=== PATIENT | female | born 1965 | race Caucasian/White ===

== ENCOUNTER 2020-01-25 14:48 | Outpatient (CLI) | payer BC, SELFPAY | END 2020-01-25 14:49 | disposition home or self-care (01) | LOC: CHSLAB 14:52 | PROVIDERS: Visit Provider Specialist | DX: D22.71 Melanocytic nevi of right lower limb, including hip (principal) | CPT/HCPCS: 88305; 88342 ==

== ENCOUNTER 2021-12-21 15:12 | Emergency (ER) | payer BC, SELFPAY ==
[2021-12-21 15:23] VITALS: BP 108/53; PULSE 72; RESP 16; TEMP 36.5; O2SAT 100
--- NOTE | 2021-12-21 15:34 | ED.SKABFB ---
HPI - Skin/Abscess/Foreign Bdy General Chief complaint: Skin/Abscess/Foreign Body Stated complaint: Burn Lt Wrist Time Seen by Provider: 12/21/21 15:25 History of Present Illness HPI narrative: Renay Torres is a 56 yo female with no PMH who comes to express care for 2x2 5 day old burn on L medial risk. She burned her wrist last Friday pulling a pie out of oven. Related Data Home Medications Medication Instructions Recorded Confirmed alendronate 70 mg tablet 70 mg PO DAILY 12/21/21 12/21/21 alprazolam 0.25 mg tablet 0.25 mg PO PRN PRN Anxiety 12/21/21 12/21/21 carvedilol 3.125 mg tablet 3.125 mg PO DAILY 12/21/21 12/21/21 escitalopram oxalate 20 mg tablet 20 mg PO DAILY 12/21/21 12/21/21 levothyroxine 75 mcg tablet 75 mcg PO DAILY 12/21/21 12/21/21 (Synthroid) lisinopril 5 mg tablet 5 mg PO DAILY 12/21/21 12/21/21 naproxen 500 mg tablet 500 mg PO DAILY 12/21/21 12/21/21 simvastatin 40 mg tablet 40 mg PO DAILY 12/21/21 12/21/21 Allergies Allergy/AdvReac Type Severity Reaction Status Date / Time Penicillins Allergy Severe Hives / Verified 12/21/21 15:15 Red Face atropine AdvReac Intermediate UNSURE Verified 12/21/21 15:15 Review of Systems Review of Systems: CONSTITUTIONAL: Denies fever, chills, sweats. EYES: Denies visual changes, redness, discharge. ENT: Denies rhinorrhea, congestion, sore throat, otalgia. CARDIOVASCULAR: Denies chest pain, palpitations, edema. RESPIRATORY: Denies dyspnea, wheezing, cough GASTROINTESTINAL: Denies abdominal pain, nausea, vomiting, diarrhea. GENITOURINARY: Denies dysuria, hematuria, abnormal discharge SKIN: Burn to left wrist that is well on way to healing, 2 x 2 second-degree burn from oven NEUROLOGIC: Denies numbness, or focal weakness. PSYCHIATRIC: Denies anxiety or depression. [facility] Social History Social History (Updated 12/21/21 @ 16:07 by Dee Dee Bgigs CNP) Smoking status: Never smoker Alcohol intake: current Comments At time of signature, I agree with nursing past medical, surgical, social and family history. There is no relevant family history pertinent to the presenting complaint. Exam Narrative: GENERAL: This is a well-nourished, well-developed patient, in mild distress. HEAD: normocephalic, atraumatic. EYES: P. Sclera clear/white. Vision is grossly intact. EARS: External ears normal, . Hearing grossly intact. NOSE: External nose normal without nasal discharge, nares without redness, no rhinorrhea. THROAT: Mucous membranes moist, NECK: Neck supple, CARDIOVASCULAR: Regular rate and rhythm without murmurs, gallops, or rubs. RESPIRATORY: Clear to auscultation. Breath sounds equal bilaterally. No wheezes, rales, or rhonchi. GASTROINTESTINAL:not done SKIN: warm, intact with 2x2 , granulating burn to L wrist, no draining, no discharge, no induration. NEURO: awake, alert, and oriented to person, place and time. There were no obvious focal neurologic abnormalities. Steady gait EXTREMITIES: Normal range of motion. BACK: Nontender without deformity Course Course Emergency Course: Patient is here for second-degree burn of her left wrist; it occurred last Friday and is here for Silvadene cream. She states because burn is seeping fluid Discussed pros and cons of Silvadene and keeping burn covered it is granulating well currently but will still take a while to heal Patient is going to use Silvadene twice a day and recommended keeping burn covered until healed Level of Care: Express Care Visit Vital Signs Vital signs: Vital Signs Temperature 97.7 F 12/21/21 15:23 Pulse Rate 72 12/21/21 15:23 Respiratory Rate 16 12/21/21 15:23 Blood Pressure 108/53 L 12/21/21 15:23 Pulse Oximetry 100 12/21/21 15:23 Oxygen Delivery Room Air 12/21/21 15:23 Temperature 97.7 F 12/21/21 15:23 Pulse Rate 72 12/21/21 15:23 Respiratory Rate 16 12/21/21 15:23 Blood Pressure 108/53 L 12/21/21 15:23 Pulse Oximetry 100 12/21/21 15:23 Oxygen De
[2021-12-21] MEDS: SILVER SULFADIAZINE 1% CR 50 GM JAR (*BKC) 1 APPLIC TOPICAL (15:41)
== END 2021-12-21 15:44 | disposition home or self-care (01) ==
PROVIDERS: Emergency Provider Nurse Practitioner; PCP Internal Medicine
DX: T23.272A Burn of second degree of left wrist, initial encounter (principal); E78.00 Pure hypercholesterolemia, unspecified; I10 Essential (primary) hypertension; M19.90 Unspecified osteoarthritis, unspecified site; E03.9 Hypothyroidism, unspecified; Z95.5 Presence of coronary angioplasty implant and graft; F41.9 Anxiety disorder, unspecified; F32.A Depression, unspecified
CPT/HCPCS: 99213; A9270; G0463

== ENCOUNTER 2022-03-22 11:53 | Emergency (ER) | payer BC, SELFPAY ==
--- NOTE | 2022-03-22 11:58 | ED.EYEPROB ---
HPI - Eye Problem General Chief complaint: Eye Problems Stated complaint: EYE REDNESS Time Seen by Provider: 03/22/22 12:20 Source: patient and RN notes reviewed Mode of arrival: ambulatory Limitations: no limitations History of Present Illness HPI Narrative: 56-year-old female presents concern for right eye redness, irritation, discharge that started last night. Reports it was matted shut this morning. She denies any upper respiratory symptoms. Reports she is babysitting her grandson this weekend and wants to make sure she is not contagious. chief complaint: eye redness Related Data Home Medications Medication Instructions Recorded Confirmed alendronate 70 mg tablet 70 mg PO DAILY 12/21/21 03/22/22 alprazolam 0.25 mg tablet 0.25 mg PO PRN PRN Anxiety 12/21/21 03/22/22 carvedilol 3.125 mg tablet 3.125 mg PO DAILY 12/21/21 03/22/22 escitalopram oxalate 20 mg tablet 20 mg PO DAILY 12/21/21 03/22/22 levothyroxine 75 mcg tablet 75 mcg PO DAILY 12/21/21 03/22/22 (Synthroid) lisinopril 5 mg tablet 5 mg PO DAILY 12/21/21 03/22/22 naproxen 500 mg tablet 500 mg PO DAILY 12/21/21 03/22/22 simvastatin 40 mg tablet 40 mg PO DAILY 12/21/21 03/22/22 Allergies Allergy/AdvReac Type Severity Reaction Status Date / Time atropine AdvReac Intermediate UNSURE Verified 03/22/22 12:12 Penicillins AdvReac Intermediate Hives / Verified 03/22/22 12:19 Red Face Review of Systems Review of Systems: CONSTITUTIONAL: Denies malaise, chills, sweats, or fever. EYES: Denies visual changes. Reports right redness, irritation, discharge. ENT: Denies rhinorrhea, congestion, sinus pain, otalgia or sore throat. SKIN: Denies rash or itching. NEUROLOGIC: Denies numbness, weakness, or headache. PSYCHIATRIC: Denies anxiety or depression. All systems reviewed & are unremarkable except as noted in HPI and below PMFSH Social History Social History (Updated 12/21/21 @ 16:07 by Dee Dee Biggs, [employer]) Smoking status: Never smoker Alcohol intake: current Comments At time of signature, agree with nursing past medical, surgical, social and family history. There is no relevant family history pertinent to the presenting complaint Exam Narrative: GENERAL: Well-appearing, well-nourished, and in no acute distress. HEAD: Normocephalic, atraumatic. EYES: PERRLA, left conjunctivae and sclera clear, and EOMI. No nystagmus. Right eye sclera and conjunctivae injected with drainage noted. Upper and lower eyelid unremarkable, no periorbital edema noted ENT: Nares clear, turbinates pink, no rhinorrhea or epistaxis. Mucous membranes moist. TM pearly nunez with sharp light reflex bilaterally; no tragal tenderness. NECK: Supple. CHEST: No respiratory distress. Speaks in full sentences. HEART: Regular rate and rhythm. SKIN: Warm, dry, no visible rash. NEURO: Alert and oriented x3. PSYCH: Normal mood and affect Course Course Emergency Course: Patient is aware of diagnosis, understands and agrees to treatment plan. Anticipatory guidance given. Patient agrees to follow-up as directed and is aware of reasons to seek care at the emergency department. Portions of this record may have been created with voice recognition software Level of Care: Express Care Visit Vital Signs Vital signs: Vital Signs Temperature 97.8 F 03/22/22 12:03 Pulse Rate 69 03/22/22 12:03 Respiratory Rate 16 03/22/22 12:03 Blood Pressure 104/57 L 03/22/22 12:03 Pulse Oximetry 100 03/22/22 12:03 Temperature 97.8 F 03/22/22 12:03 Pulse Rate 69 03/22/22 12:03 Respiratory Rate 16 03/22/22 12:03 Blood Pressure 104/57 L 03/22/22 12:03 Pulse Oximetry 100 03/22/22 12:03 Reviewed. MDM - Eye Problem MDM Narrative Medical decision making narrative: Consideration of the following conditions may be warranted for the presenting problem, they are not final diagnoses: Bacterial conjunctivitis, allergic conjunctivitis, viral conjunctivitis, foreign body, ble
[2022-03-22 12:03] VITALS: BP 104/57; PULSE 69; RESP 16; TEMP 36.6; O2SAT 100
== END 2022-03-22 12:35 | disposition home or self-care (01) ==
PROVIDERS: Emergency Provider Nurse Practitioner; PCP Internal Medicine
DX: H10.9 Unspecified conjunctivitis (principal); Z79.891 Long term (current) use of opiate analgesic
CPT/HCPCS: 99213; G0463